=== PATIENT | female | born 1955 | race Caucasian/White ===

== ENCOUNTER → 2018-01-21 | Outpatient (CLI) | payer BC ==
[~2018-01-21] VITALS: Ht 162.6 cm; Wt 92.0 kg
[~2018-01-21] MED LIST: ASPEC325 PO; FLX10 PO; FRRG PO; GABA-112 PO; LEVO25TA5 PO; MELO15TA3 PO; MISCTAB78 PO; MULT1CHW18 PO; OMEG10007 PO; PRLSR20 PO; VITA400C15 PO
[2018-01-21 11:39] VITALS: BP 137/84; PULSE 75; Ht 162.6 cm; Wt 92.0 kg
== END | disposition home or self-care (01) ==
LOC: C.NEUR 10:55
PROVIDERS: ATTEND Internal Medicine Pulmonary Disease
DX: G47.33 Obstructive sleep apnea (adult) (pediatric) (principal); Z88.8 Allergy status to other drugs, medicaments and biological substances